=== PATIENT | female | born 1990 | race Caucasian/White ===

== ENCOUNTER → 2017-12-29 10:48 | Outpatient (CLI) | payer MEDICAID, SELFPAY ==
[2017-12-29 11:09] LABS: Basophils % 0.2 % (0.1-2.0); Eosinophils # 0.2 K/mm3 (0.0-0.4); Hematocrit 37.6 % (37.0-47.0); Hemoglobin 12.7 g/dL (12.2-16.2); Lymphocytes # 2.2 K/mm3 (0.7-4.5); Lymphocytes % 24.4 K/mm3 (10-50); Mean Corpuscular HGB Conc 33.7 g/dL (31.8-35.4); Mean Corpuscular Hemoglobin 29.9 pg (27.0-31.2); Mean Corpuscular Volume 88.8 fl (81-99); Mean Platelet Volume 11.6 fl (7.4-10.4); Monocytes # 0.4 K/mm3 (0.1-1.0); Monocytes % 3.9 % (1.7-9.3); Neutrophils # 6.3 K/mm3 (1.8-7.8); Neutrophils % 69.5 % (37.0-80.0); Platelet Count 79 K/mm3 (142-424); Red Blood Count 4.24 M/mm3 (4.20-5.40); Red Cell Distribution Width 12.9 % (11.5-17.5); White Blood Count 9.1 K/mm3 (4.8-10.8)
[2017-12-29 11:24] LABS: Glucose,Fasting 77 mg/dL (60-105)
[2017-12-29 13:56] LABS: Glucose 1 Hour 172 mg/dL (74-106); Glucose 2 Hour 159 mg/dL (74-106)
[2017-12-29 14:55] LABS: Glucose 3 Hour 141 mg/dL (74-106)
== END ==
PROVIDERS: Visit Provider Obstetrics & Gynecology
DX: Z34.90 Encounter for supervision of normal pregnancy, unspecified, unspecified trimester (principal)
CPT/HCPCS: 36415; 82951; 85025

== ENCOUNTER → 2018-01-18 14:29 | Outpatient (CLI) | payer MEDICAID, SELFPAY ==
[2018-01-18 15:04] LABS: Basophils % 0.2 % (0.1-2.0); Eosinophils # 0.2 K/mm3 (0.0-0.4); Hematocrit 36.3 % (37.0-47.0); Hemoglobin 12.5 g/dL (12.2-16.2); Lymphocytes # 2.4 K/mm3 (0.7-4.5); Lymphocytes % 24.4 K/mm3 (10-50); Mean Corpuscular HGB Conc 34.4 g/dL (31.8-35.4); Mean Corpuscular Hemoglobin 30.3 pg (27.0-31.2); Mean Corpuscular Volume 88.1 fl (81-99); Mean Platelet Volume 12.7 fl (7.4-10.4); Monocytes # 0.5 K/mm3 (0.1-1.0); Monocytes % 5.3 % (1.7-9.3); Neutrophils # 6.8 K/mm3 (1.8-7.8); Neutrophils % 68.1 % (37.0-80.0); Platelet Count 71 K/mm3 (142-424); Red Blood Count 4.12 M/mm3 (4.20-5.40); Red Cell Distribution Width 13.4 % (11.5-17.5)
[2018-01-18 15:55] LABS: Thyroid Stimulating Hormone 2.72 uIU/ml (0.358-3.740)
[2018-01-18 16:10] LABS: Hemoglobin A1C 5.2 % (0.0-7.0)
[2018-01-20 17:11] LABS: Rapid Plasma Reagin Ab Titer Non Reactive (NonRea<1:1)
[2018-01-20 17:12] LABS: HIV Screen 4th Generation wRfx Non Reactive (Non Reactive); Hepatitis B Surface Antigen Negative (Negative); Rubella Antibodies, IgG >33.00 index (Immune >0.99)
== END ==
PROVIDERS: PCP Nurse Practitioner Family; Visit Provider Obstetrics & Gynecology
DX: Z34.90 Encounter for supervision of normal pregnancy, unspecified, unspecified trimester (principal); O24.419 Gestational diabetes mellitus in pregnancy, unspecified control; Z3A.00 Weeks of gestation of pregnancy not specified
CPT/HCPCS: 36415; 83036; 84443; 85025; 86403; 86592; 86703; 86762; 86850; 87340; G0432

== ENCOUNTER → 2018-02-15 09:51 | Outpatient (CLI) | payer MEDICAID, SELFPAY ==
[2018-02-15 10:59] LABS: Basophils % 0.2 % (0.1-2.0); Eosinophils # 0.2 K/mm3 (0.0-0.4); Eosinophils % 1.9 % (0.1-12.0); Hematocrit 35.8 % (37.0-47.0); Hemoglobin 12.1 g/dL (12.2-16.2); Lymphocytes # 2.1 K/mm3 (0.7-4.5); Lymphocytes % 22.6 K/mm3 (10-50); Mean Corpuscular HGB Conc 33.7 g/dL (31.8-35.4); Mean Corpuscular Hemoglobin 29.3 pg (27.0-31.2); Mean Corpuscular Volume 86.8 fl (81-99); Mean Platelet Volume 13.2 fl (7.4-10.4); Monocytes # 0.5 K/mm3 (0.1-1.0); Monocytes % 5.2 % (1.7-9.3); Neutrophils # 6.5 K/mm3 (1.8-7.8); Neutrophils % 70.1 % (37.0-80.0); Platelet Count 69 K/mm3 (142-424); Red Blood Count 4.12 M/mm3 (4.20-5.40); Red Cell Distribution Width 13.7 % (11.5-17.5); White Blood Count 9.3 K/mm3 (4.8-10.8)
== END ==
PROVIDERS: PCP Family Medicine; Visit Provider Obstetrics & Gynecology
DX: Z34.90 Encounter for supervision of normal pregnancy, unspecified, unspecified trimester (principal)
CPT/HCPCS: 36415; 85025

== ENCOUNTER 2018-02-18 04:35 | Inpatient (IN) ==
[2018-02-18 05:40] LABS: Microscopic, Urine URINE MICROSCOPIC (MICROSCOPIC)
[2018-02-18 05:50] LABS: Basophils % 0.3 % (0.1-2.0); Eosinophils # 0.2 K/mm3 (0.0-0.4); Eosinophils % 1.6 % (0.1-12.0); Hematocrit 33.8 % (37.0-47.0); Lymphocytes # 2.6 K/mm3 (0.7-4.5); Lymphocytes % 26.3 K/mm3 (10-50); Mean Corpuscular HGB Conc 35.4 g/dL (31.8-35.4); Mean Corpuscular Hemoglobin 29.9 pg (27.0-31.2); Mean Corpuscular Volume 84.5 fl (81-99); Monocytes # 0.5 K/mm3 (0.1-1.0); Monocytes % 5.1 % (1.7-9.3); Neutrophils # 6.5 K/mm3 (1.8-7.8); Neutrophils % 66.6 % (37.0-80.0); Platelet Count 60 K/mm3 (142-424); Red Cell Distribution Width 13.3 % (11.5-17.5); White Blood Count 9.8 K/mm3 (4.8-10.8)
[2018-02-18 05:53] LABS: Anion Gap 12.9 mEq/L (5-15); Calcium 8.6 mg/dL (8.5-10.1); Potassium 3.9 mmoL/L (3.5-5.1)
[2018-02-18 06:00] LABS: Appearance,Urine CLEAR (Clear); Bilirubin,Urine Negative (Negative); Blood, Urine Negative (Negative); Color,Urine YELLOW (Yellow); Glucose,Urine (UA) Negative (Negative); Ketones,Urine Negative (Negative); Leukocyte Esterase,Urine Negative (Negative); Protein,Urine Negative (Negative); Specific Gravity, Urine 1.015 (1.005-1.030); Urobilinogen,Urine 0.2 EU/dl (0.2)
[2018-02-18 06:07] LABS: Amphetamine/Metha Screen,Urine Negative ng/mL (<1000); Bacteria,Urine Trace /lpf; Barbiturates Screen,Urine Negative ng/mL (<200); Benzodiazepines Screen,Urine Negative ng/mL (<200); Cannabinoid Screen,Urine Negative ng/mL (<50); Cocaine Screen,Urine Negative ng/mL (<300); Methadone Screen,Urine Negative ng/mL (<300); Opiate Screen,Urine Negative ng/mL (<300); Phencyclidine Screen,Urine Negative ng/mL (<25); Squamous Epithelial Cell,Urine TNTC #/hpf (0-5); WBC,Urine Occasional #/hpf (0-3)
[2018-02-18 06:32] LABS: Activated Partial Thrombo Time 30.5 seconds (23.6-34.0); INR 0.94 (0.9-1.1); Prothrombin Time 9.7 seconds (9.4-11.8)
--- NOTE | 2018-02-18 07:13 | Progress Note ---
[facility] Anesthesia Checklist - Structural Data Admitted From: Inpatient Planned Operative Procedure/s: c/section Consent for Planned Operative Procedure(s) Verified: Yes - Airway Assessment C-Spine Mobility Assessed: Yes TMJ Mobility Assessed: Yes Dentition: Good Dentition - Neurological Assessment Level of Consciousness: Awake, Alert, Appropriate - Anesthesia Plan Anesthesia Risk discussed: Yes Anesthesia Plan: Verified ASA Class: II Anesthesia Type: Spinal [facility] Anesthesia HX I have reviewed the patient's past medical history: Yes (explained spinal and general due to low platelets. Pt is ok with either) Medical History: Reports:: Anxiety, Depression Other Medical History: Reports: Arthritis, Other Other Surgeries: Yes: Other. No: Amputation: No Fractures: No *Family Hx:: Hypertension, Diabetes, Cancer
--- NOTE | 2018-02-18 08:26 | Operative Note ---
Date of procedure: 02/18/18 Pre-op Diagnosis:: 1. Term intrauterine . 2. Previous section. 3. Diet-controlled gestational diabetes. 4. Desire for sterilization. 5. Borderline low platelets. Post-op Diagnosis:: 1. Term intrauterine , delivered. 8/9, 8 pounds 1 ounce, 19.5 inch male , with nuchal cord x1, born at 0740. 2. Diet-controlled gestational diabetes. 3. Desire for sterilization. 4. Borderline low platelets. Procedure performed:: Repeat low transverse cervical section and bilateral tubal sterilization. Surgeon:: Reji Mckeon MD Clerical Administrative Assistant(s):: TALI Silvestre CRUSHED STONE GRADER:: Bandar Mccoy Anesthesia: spinal Estimated blood loss (mL): 400 Clinical Note:: Prior to elective repeat low transverse cervical section and bilateral tubal sterilization, it was noted that the patient's platelet count was low at 60. Her INR was 0.9. After extensive consultation with anesthesia and the patient and her family, the decision was made to proceed to a single attempt at spinal anesthesia, with the understanding that if that was not successful, general anesthesia would be administered. The patient understood the risks and benefits of this plan and wished to proceed. As it turns out, spinal anesthesia was easily administered, and there was no undue bleeding during the procedure. Operative findings:: 1. Term intrauterine , delivered. 2. Pelvic adhesions. Operative note:: After the patient was prepped and draped in usual fashion and spinal anesthesia was administered, a low Pfannenstiel incision was made through the previous incision, and the fat and fascia was in the usual fashion, bleeders being clamped and coagulated along the way. The peritoneum was entered with Metzenbaum scissors, and stented above and below. The bladder peritoneum was sharply and bluntly dissected from the area of incision, and the bladder was protected with a bladder blade. The uterus was entered in a low transverse fashion with a knife, and the incision was extended bluntly, bilaterally. The a mniotic sac was ruptured for clear fluid. The baby was found to be in the L OT position of the vertex and, with appropriate fundal pressure, the head was easily delivered. There was a loose nuchal cord x1, which was easily reduced. There was no meconium. The baby's nasal and oropharynx were bulb suctioned, and the baby cried spontaneously on the abdomen, as was delivered. The cord was clamped and cut, 3 vessels were noted to be within the cord, and cord blood was obtained. The cord pH was 7.33. The placenta into the arms of the attending merchandising stock associate, Dr. Salomon, who assigned Apgars of 8 at 1 minute and 9 at 5 minutes to this 8 pound 1 ounce, 19.5 inch male infant, born at 0740. The baby was taken to the nursery and then condition along with the father, who have been present in the operating room. The placenta was delivered manually, intact. It was noted to be 'large'. A ring forceps was used to assure adequate drainage to the. The uterus was closed in 2 layers, the first a running locked suture of #1 Vicryl as an endometrial layer, followed by a running unlocked suture of #1 Vicryl as a myometrial layer, imbricating over the first. The bladder peritoneum was closed with a running unlocked suture of 2-0 Vicryl. Blood and clots was then swept from the gutters, and the tubes and ovaries were inspected and found to be normal. The patient was again asked if you wish to proceed with tubal sterilization, and she concurred. On the right side, the mid portion of the tube was grasped with a [place] clamp, and the base of the tented up portion of tube was crushed with a Kathie clamp, and ligated with 2-0 Vicryl. The intervening segment of the tube was excised with Metzenbaum scissors, and the stumps were coagulated with the Bovie. On the left side, there were extensive adhesions for a significant length of the tube, necessitating adhesio lysis. Because the central portion of the tube was not easily accessible, a fimbriectomy and partial salpingectomy was carried out: The distal portion of the left tube was grasped with a [place] clamp, and a hemostat was used to separate the distal portion of the tube and fimbria, which were then excised with Metzenbaum scissors. This pedicle was tied with 2-0 Vicryl. There was no undue bleeding. Blood and clots were then further from the gutters, and the uterus was replaced in the pelvis. The peritoneum was grasped with 3 Kathie clamps, and closed with a running semi-locked suture of 0 Vicryl. The muscle was approximated with a running unlocked suture of 0 Vicryl. The fascia was closed with a running locked suture of #1 Vicryl. The subcutaneous fat and Ester's fascia were closed with a running unlocked suture of 2-0 Vicryl. The skin was closed with a subcuticular suture of 3-0 Vicryl, and appropriately dressed. The urine was clear in the Mccurdy catheter. The sponge and needle counts correct. The estimated blood loss was 400 cc. The patient tolerated the procedure well, and was taken to PACU in excellent condition. Her CBC will be rechecked in PACU. Her blood type is O+. Her rubella titer is immune. She plans to breast-feed. Condition: stable Disposition: PACU Specimens:: Bilateral tubal segments. Complications:: None
--- NOTE | 2018-02-18 08:30 | Progress Note ---
[facility] Anesthesia Record Part I Intake, IV Amount: 2,000 Estimated blood loss (mL): 400 Urine output (mL): 250 Blood Pressure: 123/68 SaO2: 96 Pulse Rate: 83 Respiratory Rate: 16 Temperature: 98.4 F Patient is:: Drowsy, Stable Stable to PACU at:: 08:25
--- NOTE | 2018-02-18 08:31 | Progress Note ---
[facility] Anesthesia Record Part II Discharge Time: 08:55 Destination: Obstetric PACU nurse assessment reviewed?: Yes Patient Condition:: Good Anesthesia Complications:: None
--- NOTE | 2018-02-18 08:45 | Pharmacy Consult Notes ---
[facility] Pharmacy VTE Monitoring - Patient Demographics Admission date: 02/18/18 Report Date: 02/18/18 Time: 08:45 Allergies/Adverse Reactions: Patient Allergies propranolol Allergy (Verified 02/15/18 08:50) Height: 1.6 m Weight: 94.347 kg - VTE Risk Labs: VTE Related Lab Results Hgb 12.0 g/dL (12.2-16.2) L 02/18/18 05:15 Hct 33.8 % (37.0-47.0) L 02/18/18 05:15 Plt Count 60 K/mm3 (142-424) L 02/18/18 05:15 PT 9.7 seconds (9.4-11.8) 02/18/18 06:13 INR 0.94 (0.9-1.1) 02/18/18 06:13 APTT 30.5 seconds (23.6-34.0) 02/18/18 06:13 BUN 6 mg/dL (7-18) L 02/18/18 05:15 Creatinine 0.74 mg/dL (0.55-1.02) 02/18/18 05:15 Estimated Creat Clear 167 mL/min (0-300) 02/18/18 05:15 Clinical Trial Participant: No - Prophylaxis VTE Prophylaxis Ordered?: Yes Types of VTE Prophylaxis: IPCS Knee High (post op)
[2018-02-18 09:15] LABS: Basophils % 0.2 % (0.1-2.0); Eosinophils # 0.1 K/mm3 (0.0-0.4); Hematocrit 33.8 % (37.0-47.0); Hemoglobin 11.3 g/dL (12.2-16.2); Lymphocytes # 1.8 K/mm3 (0.7-4.5); Lymphocytes % 17.9 K/mm3 (10-50); Mean Corpuscular HGB Conc 33.3 g/dL (31.8-35.4); Mean Corpuscular Hemoglobin 29.5 pg (27.0-31.2); Mean Corpuscular Volume 88.4 fl (81-99); Monocytes # 0.4 K/mm3 (0.1-1.0); Monocytes % 4.4 % (1.7-9.3); Neutrophils # 7.5 K/mm3 (1.8-7.8); Neutrophils % 76.5 % (37.0-80.0); Platelet Count 64 K/mm3 (142-424); Red Blood Count 3.82 M/mm3 (4.20-5.40); Red Cell Distribution Width 13.5 % (11.5-17.5); White Blood Count 9.8 K/mm3 (4.8-10.8)
--- NOTE | 2018-02-18 12:18 | Progress Note ---
Internal Medicine - PN: Subj *Date: 02/18/18 *Time: 12:17 (This is day of surgery. The patient is afebrile. Her vital signs are stable. Wound clean. Abdomen soft. Uterine fundus involuting well. Her hemoglobin is 11.3 g, but she is clinically stable. Her platelet count is up to 64 (from 60 preop). She shown no evidence of abnormal bleeding or bruising. She is breast-feeding well. Impression: Stable.) Exam Vital signs and Labs for Last 24 Hours: Temp Pulse Resp BP Pulse Ox 97.8 F 78 16 112/63 96 02/18/18 09:15 02/18/18 09:15 02/18/18 09:15 02/18/18 09:15 02/18/18 09:15 Laboratory Results - last 24 hr 02/18/18 04:45: Urine Color Yellow, Urine Appearance Clear, Urine pH 7.0, Ur Specific [place] 1.015, Urine Protein Negative, Urine Glucose (UA) Negative, Urine Ketones Negative, Urine Blood Negative, Urine Nitrate Negative, Urine Bilirubin Negative, Urine Urobilinogen 0.2, Ur Leukocyte Esterase Negative, Urine WBC Occasional, Ur Squamous Epith Cells Tntc, Urine Bacteria Trace 02/18/18 04:45: Urine Opiates Screen Negative, Urine Methadone Screen Negative, Ur Barbituates Screen Negative, Ur Phencyclidine Scrn Negative, Ur Amphetamines Screen Negative, U Benzodiazepines Scrn Negative, Urine Cocaine Screen Negative, U Marijuana (THC) Screen Negative 02/18/18 05:15: WBC 9.8, RBC 4.00 L, Hgb 12.0 L, Hct 33.8 L, MCV 84.5, MCH 29.9, MCHC 35.4, RDW 13.3, Plt Count 60 L, MPV 14.0 H, Neut % (Auto) 66.6, Lymph % (Auto) 26.3, [place] % (Auto) 5.1, Eos % (Auto) 1.6, Baso % (Auto) 0.3, Neut # (Auto) 6.5, Lymph # (Auto) 2.6, [place] # (Auto) 0.5, Eos # (Auto) 0.2, Baso # (Auto) 0.0 02/18/18 05:15: Blood Type O Positive, Antibody Screen Negative 02/18/18 05:15: Sodium 138, Potassium 3.9, Chloride 104, Carbon Dioxide 25, Anion Gap 12.9, BUN 6 L, Creatinine 0.74, Estimated Creat Clear 167, Estimated GFR 93, Est GFR ( Amer) 112, Glucose 86, Calcium 8.6 02/18/18 06:13: PT 9.7, INR 0.94, APTT 30.5 02/18/18 07:25: Urine Color Yellow, Urine Appearance Clear, Urine pH 7.5, Ur Specific [place] 1.010, Urine Protein Negative, Urine Glucose (UA) Negative, Urine Ketones Negative, Urine Blood Negative, Urine Nitrate Negative, Urine Bilirubin Negative, Urine Urobilinogen 0.2, Ur Leukocyte Esterase Negative, Urine WBC Occasional, Ur Squamous Epith Cells 3-5, Urine Bacteria 1+ 02/18/18 07:47: Cord ABG pH 7.33 L 02/18/18 08:53: WBC 9.8, RBC 3.82 L, Hgb 11.3 L, Hct 33.8 L, MCV 88.4, MCH 29.5, MCHC 33.3, RDW 13.5, Plt Count 64 L, MPV 14.0 H, Neut % (Auto) 76.5, Lymph % (Auto) 17.9, [place] % (Auto) 4.4, Eos % (Auto) 1.0, Baso % (Auto) 0.2, Neut # (Auto) 7.5, Lymph # (Auto) 1.8, [place] # (Auto) 0.4, Eos # (Auto) 0.1, Baso # (Auto) 0.0 I & O for Last 24 hours: Intake & Output 02/16/18 02/17/18 02/18/18 02/19/18 11:59 11:59 11:59 11:59 Intake Total 1999 Output Total Balance 1974 / 1974 Weight 208 lb
--- NOTE | 2018-02-19 07:00 | Progress Note ---
Internal Medicine - PN: Subj *Date: 02/19/18 *Time: 06:59 (This is /postop day #1. The patient is afebrile. Her vital signs are stable. Wound clean. Abdomen soft. No evidence of bruising. Lochia is normal. The baby is breast-feeding and doing well, and has been circumcised by Dr. Salomon. I am going to recheck her platelet count this morning.) Exam Vital signs and Labs for Last 24 Hours: Temp Pulse Resp BP Pulse Ox 97.8 F 78 16 112/63 96 02/18/18 09:15 02/18/18 09:15 02/18/18 09:15 02/18/18 09:15 02/18/18 09:15 Laboratory Results - last 24 hr 02/18/18 07:25: Urine Color Yellow, Urine Appearance Clear, Urine pH 7.5, Ur Specific [place] 1.010, Urine Protein Negative, Urine Glucose (UA) Negative, Urine Ketones Negative, Urine Blood Negative, Urine Nitrate Negative, Urine Bilirubin Negative, Urine Urobilinogen 0.2, Ur Leukocyte Esterase Negative, Urine WBC Occasional, Ur Squamous Epith Cells 3-5, Urine Bacteria 1+ 02/18/18 07:47: Cord ABG pH 7.33 L 02/18/18 08:53: WBC 9.8, RBC 3.82 L, Hgb 11.3 L, Hct 33.8 L, MCV 88.4, MCH 29.5, MCHC 33.3, RDW 13.5, Plt Count 64 L, MPV 14.0 H, Neut % (Auto) 76.5, Lymph % (Auto) 17.9, [place] % (Auto) 4.4, Eos % (Auto) 1.0, Baso % (Auto) 0.2, Neut # (Auto) 7.5, Lymph # (Auto) 1.8, [place] # (Auto) 0.4, Eos # (Auto) 0.1, Baso # (Auto) 0.0 I & O for Last 24 hours: Intake & Output 02/16/18 02/17/18 02/18/18 02/19/18 11:59 11:59 11:59 11:59 Intake Total 1999 Output Total Balance 1974 / 1974 Weight 208 lb
[2018-02-19 07:50] LABS: Basophils % 0.2 % (0.1-2.0); Eosinophils # 0.1 K/mm3 (0.0-0.4); Eosinophils % 0.8 % (0.1-12.0); Hematocrit 30.4 % (37.0-47.0); Hemoglobin 10.3 g/dL (12.2-16.2); Lymphocytes # 1.3 K/mm3 (0.7-4.5); Lymphocytes % 11.2 K/mm3 (10-50); Mean Corpuscular HGB Conc 33.8 g/dL (31.8-35.4); Mean Corpuscular Hemoglobin 29.5 pg (27.0-31.2); Mean Corpuscular Volume 87.4 fl (81-99); Mean Platelet Volume 14.2 fl (7.4-10.4); Monocytes # 0.7 K/mm3 (0.1-1.0); Monocytes % 5.8 % (1.7-9.3); Neutrophils # 9.2 K/mm3 (1.8-7.8); Platelet Count 75 K/mm3 (142-424); Red Blood Count 3.48 M/mm3 (4.20-5.40); Red Cell Distribution Width 13.7 % (11.5-17.5); White Blood Count 11.3 K/mm3 (4.8-10.8)
--- NOTE | 2018-02-20 08:32 | Progress Note ---
Internal Medicine - PN: Subj *Date: 02/20/18 *Time: 08:31 (This is /postop day #2. The patient is afebrile. Vital signs stable. Wound clean. Abdomen soft. Lochia normal. Uterine fundus involuting well. Breast-feeding well. Her platelet count has rebounded to 75 at this time. Impression: Stable.) Exam Vital signs and Labs for Last 24 Hours: Temp Pulse Resp BP Pulse Ox 98.7 F 93 H 18 120/66 98 02/19/18 19:44 02/19/18 19:44 02/19/18 19:44 02/19/18 19:44 02/19/18 19:44 I & O for Last 24 hours: Intake & Output 02/17/18 02/18/18 02/19/18 02/20/18 11:59 11:59 11:59 11:59 Intake Total 1999 Output Total 25 / 25 Balance 1974 / 1974 Weight 208 lb
--- NOTE | 2018-02-21 08:43 | Progress Note ---
Internal Medicine - PN: Subj *Date: 02/21/18 *Time: 08:42 (This is /5 day #3. The patient is afebrile. Vital s igns stable. Wound clean. Abdomen soft. Lochia normal. Uterine fundus has involuted well. She is eating and ambulating, and had a bowel movement. Her wound to show no evidence of ecchymosis. Her hemoglobin is 10.3 g, but she is clinically stable. She is not a smoker. She will be discharged today.) Exam Vital signs and Labs for Last 24 Hours: Temp Pulse Resp BP Pulse Ox 98.8 F 80 18 118/71 98 02/20/18 20:18 02/20/18 20:18 02/20/18 20:18 02/20/18 20:18 02/20/18 20:18 I & O for Last 24 hours: Intake & Output 02/18/18 02/19/18 02/20/18 02/21/18 11:59 11:59 11:59 11:59 Intake Total 1999 Output Total Balance 1974 Weight 208 lb
--- NOTE | 2018-02-21 08:50 | Discharge Summary ---
General - General Admission date:: 02/18/18 Discharge date: 02/21/18 (This 27-year-old 3, now para 2, AB 1 white female was admitted at 39 2/7 weeks for repeat section and bilateral tubal ligation. Upon admission it was noted that her platelet count was low (60). It had apparently been trending down recently. Her hemoglobin was 12.0 g. And her INR was 0.9. She was a known gestational diabetic, but her Accu- Chek was 80. After long discussion with the patient and with anesthesia, the decision was made to give a spinal anesthetic a single attempt, and to proceed to general anesthesia if that was not successful. The patient was then taken to the operating room, where spinal anesthetic was easily applied, and she underwent a repeat low transverse cervical section and bilateral tubal ligation, without complications. The estimated blood loss was 400 cc. The baby was an 8/9, 8 lbs. 1 oz., 19 inch male , with nuchal cord 1. The baby is breast-feeding, has been circumcised, and is done well. , the patient is done well. Her hemoglobin is 10.3 g, but she is clinically stable. Her blood count has increased from the preop (60) to 64 immediately postop, and now 75. The cause of her thrombocytopenia is unknown, and will be addressed at a later date. Patient's wound is clean. It has shown no evidence of ecchymosis, nor has she had any bruising problems. Her abdomen is soft. Her lochia is normal. Her uterine fundus is involuting well. She is eating and ambulating, and has had a bowel movement. She is discharged home on the third /postoperative day on iron and vitamins, on Tylenol and Motrin, and on Percocet 5/325 (#20), 1 p.o. every 6 hours as needed pain. She is given appropriate instructions as to diet, exercise, and wound care, and she is to return the office in 2 weeks for follow-up. Her blood type is O+. Her rubella titer is immune.) Objective Vital signs: Temp Pulse Resp BP Pulse Ox 98.8 F 80 18 118/71 98 02/20/18 20:18 02/20/18 20:18 02/20/18 20:18 02/20/18 20:18 02/20/18 20:18 Discharge Plan - Patient Discharge Instructions Patient Instructions: Depression, Hemorrhage, Surgical Site Infection, DI for Postoperative Pain, Post Discharge Instructions - Follow up Plan Follow up with: Reji Mckeon MD [Staff Physician] - 2 weeks Home Medications: Home Medications Medication Instructions Recorded Confirmed Type loratadine 10 mg tablet 10 mg PO DAILY 12/22/17 02/18/18 History Pnv95/Iron Fum/Folic Acid 1 each PO DAILY 02/18/18 02/18/18 History [ Tablet] Prescriptions/Medication Reconciliation: No Action loratadine 10 mg tablet 10 mg PO DAILY Pnv95/Iron Fum/Folic Acid [ Tablet] 1 each PO DAILY
== END 2018-02-21 09:28 | disposition home or self-care (01) ==
LOC: OB 04:35
PROVIDERS: ADMIT Obstetrics & Gynecology; ATTEND Obstetrics & Gynecology